=== PATIENT | female | born 1995 | race African-American/Black ===

== ENCOUNTER 2017-06-11 09:06 | Emergency (ER) | payer SELFPAY ==
[~2017-06-11] VITALS: Ht 160 cm; Wt 59.0 kg
[2017-06-11] MEDS ORDERED: IV NORMAL SALINE 1,000ML 1,000 ML IV SCH (09:23)
[2017-06-11] MEDS ORDERED: HYDROmorphone PF 1 MG/ML DISP.SYRIN IV/SQ PRN (09:30)
[2017-06-11] MEDS ORDERED: 0.9 % SODIUM CHLORIDE 10 ML DISP.SYRIN. IV PRN (09:30)
--- NOTE | 2017-06-11 09:34 | PHYS DOC ---
Past History Past Medical History: Asthma Past Surgical History: No Surgical History Smoking: Cigarettes Alcohol Use: Occasionally Drug Use: Marijuana Adult General Chief Complaint Chief Complaint: flank pain [facility] HPI Patient is a pleasant 21-year-old 002 last mental. May 23 who presents with flank pain began 2 days ago. She describes light pain as waxing and waning with some mild migration from the left flank to the lower left abdominal wall. It is worse with movement of the abdominal wall which is creases the pain. Pain at this point is 3 of 10 but has been a 10 of 10. She has used Naprosyn and an attempt to treat her symptoms which has only slightly improved. She has had some subjective chills without fever document, no nausea no vomiting no diarrhea no UTI symptoms no hematuria no hesitation frequency or urgency. Patient further denies any trauma, denies any travel outside the country or sick contacts at home. Review of Systems Review of Systems Constitutional: subjective fever and chills Eyes: Denies change in visual acuity, redness, or eye pain [] HENT: Denies nasal congestion or sore throat [] Respiratory: Denies cough or shortness of breath [] Cardiovascular: No additional information not addressed in HPI [] GI: abd pain left flank with mild nausea, no vomiting, no diarrhea : Denies dysuria or hematuria [] Musculoskeletal: Denies back pain or joint pain [] Integument: Denies rash or skin lesions [] Neurologic: Denies headache, focal weakness or sensory changes [] Endocrine: Denies polyuria or polydipsia [] Allergies Allergies Allergies Coded Allergies Type Severity Reaction Last Updated Verified No Known Drug Allergies 10/16/13 No Physical Exam Physical Exam Constitutional: Well developed, well nourished, no acute distress, non-toxic appearance. [] HENT: Normocephalic, atraumatic, bilateral external ears normal, oropharynx moist, no oral exudates, nose normal. [] Eyes: PERRLA, EOMI, conjunctiva normal, no discharge. [] Neck: Normal range of motion, no tenderness, supple, no stridor. [] Cardiovascular:Heart rate regular rhythm, no murmur [] Lungs & Thorax: Bilateral breath sounds clear to auscultation [] Abdomen: Bowel sounds normal, soft, no masses, no pulsatile masses. ttp flank without G/R/OM[] Skin: Warm, dry, no erythema, no rash. [] Back: No tenderness, no CVA tenderness. [] Neurologic: Alert and oriented X 3, Psychologic: Affect normal, judgement normal, mood normal. [] EKG EKG [] Radiology/Procedures Radiology/Procedures [] Course & Med Decision Making Course & Med Decision Making Pertinent Labs and Imaging studies reviewed. (See chart for details) [] Dragon Disclaimer Dragon Disclaimer This chart was dictated in whole or in part using Voice Recognition software in a busy, high-work load, and often noisy Emergency Department environment. It may contain unintended and wholly unrecognized errors or omissions. Departure Departure: Impression: Primary Impression: Flank pain Disposition: HOME, SELF-CARE Referrals: SUZE GALEANO MD (PCP) TITA CAICEDO MD Jun 11, 2017 09:34
[2017-06-11 09:45] LABS: BASO % 0 % (0-3); EOS % 0 % (0-3); HEMATOCRIT 45.9 % (36.0-47.0); HEMOGLOBIN 15.7 g/dL (12.0-15.5); LYMPH # 1.1 x10^3/uL (1.0-4.8); LYMPH % 10 % (24-48); MEAN CORPUSCULAR HEMOGLOBIN 33 pg (25-35); MEAN CORPUSCULAR HGB CONC 34 g/dL (31-37); MEAN CORPUSCULAR VOLUME 95 fL (79-100); MONO # 0.8 x10^3/uL (0.0-1.1); MONO % 8 % (0-9); NEUT % 82 % (31-73); PLATELET COUNT 148 x10^3/uL (140-400); RED BLOOD COUNT 4.83 x10^6/uL (3.50-5.40); RED CELL DISTRIBUTION WIDTH 13.9 % (11.5-14.5)
[2017-06-11 09:59] LABS: ALBUMIN 4.1 g/dL (3.4-5.0); CALCIUM 9.1 mg/dL (8.5-10.1); DIRECT BILIRUBIN 0.2 mg/dL (0.0-0.2); GFR 83.9; TOTAL BILIRUBIN 0.7 mg/dL (0.2-1.0); TOTAL PROTEIN 8.5 g/dL (6.4-8.2)
[2017-06-11] MEDS ORDERED: ONDANSETRON PF 4 MG/2 ML VIAL. IV ONE (10:00)
[2017-06-11 10:02] LABS: BILIRUBIN,URINE NEG (NEG); CLARITY,URINE CLOUDY; COLOR,URINE YELLOW; GLUCOSE,URINE NEG (NEG)
[2017-06-11 10:03] LABS: BACTERIA,URINE FEW /HPF (0-FEW); NITRITE,URINE NEG (NEG); SQUAMOUS EPITHELIAL CELL,UR FEW /LPF; UROBILINOGEN,URINE 0.2 mg/dL (0.2 mg/dL)
[2017-06-11 10:09] VITALS: BP 123/98
--- NOTE | 2017-06-11 10:29 | RAD ---
Indication: Left flank pain and fever. Axial imaging through the abdomen and pelvis was performed without contrast. The lung bases are clear. The liver and gallbladder are unremarkable. The pancreas and spleen are unremarkable. No adrenal mass is seen. No renal calculi or hydronephrosis is identified. No ureteral calculi are detected. The bladder is unremarkable. The small and large bowel loops are normal caliber. There appears to be some appendicoliths within the appendix but no inflammation is seen. There is some free fluid in the pelvis, perhaps physiologic. Uterus and ovaries are unremarkable. Impression: No evidence of urinary tract calculi or obstruction. PQRS Compliance Statement: One or more of the following individualized dose reduction techniques were utilized for this examination: 1. Automated exposure control 2. Adjustment of the mA and/or kV according to patient size 3. Use of iterative reconstruction technique
[2017-06-11] MEDS ORDERED: SULF1TAB24 PO (10:52)
[2017-06-11] MEDS ORDERED: PHEN-318 PO (10:52)
[2017-06-11] MEDS ORDERED: NAPR500T PO (10:52)
== END 2017-06-11 11:05 | disposition home or self-care (01) ==
LOC: ER 09:06
DX: R10.32 Left lower quadrant pain (principal); J45.909 Unspecified asthma, uncomplicated; F17.210 Nicotine dependence, cigarettes, uncomplicated; F12.10 Cannabis abuse, uncomplicated
CPT/HCPCS: 36415; 74176; 80048; 80076; 81001; 81025; 83690; 85025; 87086; 96361; 96374; 96375; 99285; J1170; J2405; J7030